=== PATIENT | female | born 1950 | race Two or more races ===

== ENCOUNTER 2018-08-16 13:05 | Outpatient (CLI) | payer OTHER | END 2018-08-16 13:26 | disposition home or self-care (01) | LOC: RAD 501 13:05 | DX: M25.562 Pain in left knee (principal) ==

== ENCOUNTER 2021-07-07 11:26 | Outpatient (CLI) | payer OTHER | END 2021-07-07 11:41 | disposition home or self-care (01) | LOC: TOM 11:26 | PROVIDERS: ATTEND Internal Medicine Pulmonary Disease | DX: I10 Essential (primary) hypertension (principal); J98.11 Atelectasis ==

== ENCOUNTER 2023-03-09 11:25 | Outpatient (CLI) | payer OTHER | END 2023-03-09 11:31 | disposition home or self-care (01) | LOC: RAD 11:25 | PROVIDERS: ATTEND Orthopaedic Surgery | DX: M25.562 Pain in left knee (principal); M25.571 Pain in right ankle and joints of right foot ==

== ENCOUNTER 2024-10-17 13:17 | Outpatient (CLI) | payer OTHER | END 2024-10-17 13:23 | disposition home or self-care (01) | LOC: RAD 13:17 | PROVIDERS: ATTEND Orthopaedic Surgery | DX: M25.562 Pain in left knee (principal); M25.571 Pain in right ankle and joints of right foot ==

== ENCOUNTER 2024-10-25 11:29 | Outpatient (CLI) | payer OTHER | END 2024-10-25 11:35 | disposition home or self-care (01) | LOC: RAD 11:29 | PROVIDERS: ATTEND Orthopaedic Surgery | DX: S82.54XA Nondisplaced fracture of medial malleolus of right tibia, initial encounter for closed fracture (principal); S92.354A Nondisplaced fracture of fifth metatarsal bone, right foot, initial encounter for closed fracture ==

== ENCOUNTER 2024-11-29 10:03 | Outpatient (CLI) | payer OTHER | END 2024-11-29 10:10 | disposition home or self-care (01) | LOC: SONOGRAMA 10:03 | DX: R10.9 Unspecified abdominal pain (principal); K29.00 Acute gastritis without bleeding ==

== ENCOUNTER 2024-11-29 11:11 | Outpatient (CLI) | payer OTHER ==
[2024-11-29 12:34] LABS: URINE APPEARANCE Clear; URINE BILIRRUBIN Negative (NEGATIVE); URINE BLOOD Negative; URINE COLOR Yellow; URINE GLUCOSE Negative (NEGATIVE); URINE KETONE Negative (NEGATIVE); URINE LEUKOCYTE Negative; URINE NITRATE Negative; URINE PROTEIN Negative (NEGATIVE); URINE UROBILINOGEN 0.2 E.U./dl
[2024-11-29 12:36] LABS: URINE EPITHELIAL CELLS 10.7 uL (0.0-38.8); URINE RBC 12.6 uL (0.0-20.8); URINE WBC 3.1 uL (0.0-23.2)
[2024-11-29 12:46] LABS: HEMATOCRIT 36.9 % (36.0-45.00); HEMOGLOBIN 12.7 g/dL (12.0-15.00); MEAN CELL VOLUME 90.8 fL (80.00-100.00); MEAN CORPUSCULAR HEMOGLOBIN 31.1 pg (27.00-32.0); MEAN CORPUSCULAR HGB CONC 34.3 g/dl (32.0-36.0); PLATELET COUNT 242 K/uL (150-450); RED BLOOD COUNT 4.07 M/uL (4.00-6.00); RED CELL DISTRIBUTION WIDTH 13.8 % (11.5-14.5)
[2024-11-29 14:14] LABS: URIC ACID 5.5 mg/dL (2.5-7.5)
[2024-11-29 14:38] LABS: CORTISOL 7.67 ug/dl; VITAMIN D3 25 HYDROXY 43.89 ng/ml (30-120)
[2024-11-29 14:40] LABS: BILIRUBIN TOTAL 0.57 mg/dL (0.3-1.2); CALCIUM 9.5 mg/dL (8.5-10.1); CREATININE SERUM 0.85 mg/dL (0.55-1.02); FERRITIN 73.5 NG/ML (8-252); FREE TRIODOTIRONINE 2.67 pg/ml (2.18-3.98); GFR 65.56; GLOBULINA 3.3 G/DL (2.4-3.5); MAGNESIUM 2.3 mg/dL (1.8-2.4); POTASSIUM 4.43 mEq/L (3.5-5.1); T4 FREE 1.1 NG/ML (0.76-1.46); TOTAL PROTEIN 7.3 gm/dL (6.4-8.2); TSH 1.57 uIU/mL (0.358-3.74)
[2024-11-29 14:45] LABS: CHOL HDL RATIO 2.8 (0-5.0)
[2024-11-29 14:46] LABS: C-REACTIVE PROTEIN 0.32 MG/DL (0.00-0.29)
== END 2024-11-29 11:12 | disposition home or self-care (01) ==
LOC: LAB 11:11
PROVIDERS: ATTEND Orthopaedic Surgery
DX: Z13.1 Encounter for screening for diabetes mellitus (principal); R73.03 Prediabetes; E78.2 Mixed hyperlipidemia; E55.9 Vitamin D deficiency, unspecified; E03.9 Hypothyroidism, unspecified; M81.8 Other osteoporosis without current pathological fracture; E88.9 Metabolic disorder, unspecified; E21.3 Hyperparathyroidism, unspecified; E56.1 Deficiency of vitamin K; M85.9 Disorder of bone density and structure, unspecified

== ENCOUNTER 2024-12-13 12:53 | Outpatient (CLI) | payer OTHER | END 2024-12-13 12:54 | disposition home or self-care (01) | LOC: NUCLEAR 12:53 | PROVIDERS: ATTEND Obstetrics & Gynecology | DX: M85.80 Other specified disorders of bone density and structure, unspecified site (principal); M81.0 Age-related osteoporosis without current pathological fracture ==

== ENCOUNTER 2025-09-27 10:50 | Outpatient (CLI) | payer OTHER ==
[2025-09-27 12:06] LABS: CREATININE SERUM 0.81 mg/dL (0.55-1.02); GFR 69.12
== END 2025-09-27 10:58 | disposition home or self-care (01) ==
LOC: LAB 10:50
PROVIDERS: ATTEND Radiology Diagnostic Radiology
DX: S43.005A Unspecified dislocation of left shoulder joint, initial encounter (principal)